=== PATIENT | female | born 1935 | race Hispanic/Latino ===

== ENCOUNTER 2017-04-14 13:35 | Outpatient (CLI) | payer MEDICARE ==
--- NOTE | 2017-04-14 19:27 | XRay Report ---
FINAL REPORT EXAM: XR SHOULDER 2+V RT HISTORY: SHOULDER PAIN TECHNIQUE: Three views right shoulder. PRIORS: None currently available. FINDINGS: There is no acute fracture. There is no evidence for healing fracture. There is no acute dislocation. [id number] degenerative arthrosis at the acromioclavicular joint. Inferior spurring at the distal clavicle may be causing outlet impingement syndrome. Moderate degenerative arthrosis at the glenohumeral joint. Inferior osteophyte noted. There is no cortical destruction to suggest osteomyelitis. There are no suspicious osseous lesions. There are no radiopaque foreign objects. IMPRESSION: No acute osseous findings. Degenerative arthrosis. 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
--- NOTE | 2017-04-14 22:36 | XRay Report ---
FINAL REPORT PROCEDURE: Right humerus. TECHNIQUE: Two views. HISTORY: Arm pain. COMPARISON: No prior studies are available for comparison. FINDINGS: The bones appear intact without fracture or dislocation. There is some osteoarthritis involving the glenohumeral joint and the acromioclavicular joint. The elbow joint appear satisfactory. The soft tissues are unremarkable. IMPRESSION: Osteoarthritis. No evidence of fracture.
--- NOTE | 2017-04-14 22:37 | XRay Report ---
FINAL REPORT PROCEDURE: Right forearm. TECHNIQUE: AP and lateral views. HISTORY: Arm pain. COMPARISON: No prior studies are available for comparison. FINDINGS: The bones appear intact without fracture or dislocation. The joint spaces appear normal. The soft tissues are unremarkable. IMPRESSION: Normal study.
== END 2017-04-14 13:36 | disposition home or self-care (01) ==
LOC: XRAY 13:35
PROVIDERS: ATTEND Orthopaedic Surgery Sports Medicine
DX: M19.011 Primary osteoarthritis, right shoulder (principal); M19.041 Primary osteoarthritis, right hand; M79.631 Pain in right forearm